=== PATIENT | male | born 1985 | race Caucasian/White ===

== ENCOUNTER 2019-05-12 11:22 | Inpatient (IN) | payer BC, OTHER ==
[~2019-05-12] VITALS: Ht 175.3 cm; Wt 93.8 kg
[2019-05-12] MEDS ORDERED: SODIUM CHLORIDE 0.9% 500 ML IVB ONE (12:03)
[2019-05-12] MEDS ORDERED: SODIUM CHLORIDE 0.9% 1,000 ML IV ONE (12:03)
[2019-05-12] MEDS ORDERED: HYDROmorphone HCL 2 MG/ML VL IV ONE ×2 (12:15→15:30)
[2019-05-12] MEDS: PROMETHAZINE HCL 25 MG/ML 1ML IV PRN ×2 (12:45→22:58)
[2019-05-12 13:47] LABS: Basophils # (auto) 0 10 ^3/uL (0-0.2); Basophils % (auto) 0.3 % (0.0-2.0); Eosinophils # (auto) 0 10 ^3/uL (0-0.8); Hematocrit 43.1 % (41.0-53.0); Hemoglobin 14.7 g/dL (13.5-17.5); Lymphocytes # (auto) 0.5 10 ^3/uL (0.4-5.4); Lymphocytes % (auto) 3.5 % (10.0-50.0); Mean Corpuscular Hemoglobin 30.2 pg (28.0-32.0); Mean Corpuscular Hgb Conc. 34.1 g/dL (32.0-36.0); Mean Corpuscular Volume 88.6 fL (80.0-100.0); Monocytes % (auto) 6.7 % (0.0-12.0); Neutrophils # (auto) 13.9 10 ^3/uL (1.6-8.6); Neutrophils % (auto) 89.5 % (37.0-80.0); Nucleated Red Blood Cells % 0.1 %; Platelet Count (auto) 174 10^3/uL (140-450); Red Blood Cells 4.87 10^6/uL (4.5-5.90); Red Cell Distribution Width 15.3 % (11.8-14.3); White Blood Cell 15.5 10^3/uL (4.4-10.8)
[2019-05-12 14:13] LABS: Albumin 3.8 g/dL (3.4-5.0); Calcium 8.3 mg/dL (8.5-10.1); Magnesium 1.9 mg/dL (1.6-2.6); Potassium 3.6 mmol/L (3.5-5.1)
[2019-05-12 14:22] LABS: BUN/Creatinine Ratio 15.2; Bilirubin, Total 0.9 mg/dL (0.2-1.0); Total Protein 7.4 g/dL (6.4-8.2)
[2019-05-12] MEDS ORDERED: IOHEXOL 350 MG/ML 100ML IJ ONE (14:29)
[2019-05-12 14:38] LABS: Urine Bacteria NONE SEEN /hpf (None Seen); Urine Blood 2+ /uL (Negative); Urine Specific Gravity 1.019 (1.001-1.035); Urine WBC <1 /hpf (0 - 3)
[2019-05-12] MEDS ORDERED: LABETALOL HCL 5 MG/ML 4ML SYRINGE IV ONE (14:45)
[2019-05-12] MEDS ORDERED: SODIUM CHLORIDE 0.9% 2,000 ML IV ONE (14:45)
[2019-05-12] MEDS ORDERED: PROMETHAZINE HCL 25 MG/ML 1ML IV ONE (15:30)
[2019-05-12] MEDS ORDERED: hydrALAZINE HCL 20 MG/ML VL IV PRN (16:15)
[2019-05-12] MEDS ORDERED: LORazepam 2MG/ML-1ML VIAL IV PRN (16:15)
[2019-05-12] MEDS ORDERED: cloNIDine 0.2 mg/24hr 7DAY PATCH TD ONE (16:15)
[2019-05-12] MEDS ORDERED: hydrALAZINE HCL 20 MG/ML VL IV ONE (16:15)
[2019-05-12] MEDS ORDERED: ONDANSETRON HCL 4 MG/2 ML VIAL IV PRN (16:15)
[2019-05-12] MEDS ORDERED: HYDROmorphone HCL 2 MG/ML VL IV PRN (16:15)
[2019-05-12] MEDS ORDERED: NITROGLYCERIN 0.4 MG SL TAB SL PRN (16:15)
[2019-05-12 16:19] LABS: Amphetamine Screen, Urine NEGATIVE (NEGATIVE); Barbiturate Scree,Urine NEGATIVE (NEGATIVE); Benzodiazephine Screen, Urine NEGATIVE (NEGATIVE); Cannabinoid Screen, Urine POSITIVE (NEGATIVE); Cocaine Screen, Urine POSITIVE (NEGATIVE); Opiate Scree,Urine NEGATIVE (NEGATIVE); Phencyclidine Screen, Urine NEGATIVE (NEGATIVE)
[2019-05-12 17:08] LABS: Cholesterol 145 mg/dL (< 200); HDL Cholesterol 38 mg/dL (40-59); Triglycerides 568 mg/dL (< 150)
--- NOTE | 2019-05-12 17:26 | NUR ---
Telemetry admit from ER KELSIE MAZA admitted to Telemetry unit after SBAR received. Patient oriented to FALGUNI PIRES primary RN, unit, room 214b and unit policies regarding patient care and visiting hours. Patient now on continuous telemetry monitoring, tele box #[id number] and telemetry reading on arrival to unit is 104. Patient weighed by bedscale and encouraged to call if they need something. All questions and concerns addressed, patient verbalized understanding.
[2019-05-12 17:41] VITALS: BP 164/105
[2019-05-12] MEDS: LACTATED RINGER'S 1,000 ML IV SCH (17:46)
--- NOTE | 2019-05-12 17:46 | NUR ---
PAIN Patient complaining of pain 10/10 epigastric. No pain medication due, patient was offered hot pack and refused, will reach out to hospitalist.
--- NOTE | 2019-05-12 17:50 | NUR ---
DICK PAPPAS PAGED updated on patient pain status, new orders received.
[2019-05-12 17:53] VITALS: BP 164/105
--- NOTE | 2019-05-12 18:42 | NUR ---
IV insertion IV access obtained, via clean sterile technique by inserting 20 gauge catheter at right AC after 3 attempts. IV secured properly. No trauma to site. Patient tolerated well.
[2019-05-12] MEDS: HYDROmorphone HCL 2 MG/ML VL IV PRN ×2 (18:52→22:58)
--- NOTE | 2019-05-12 18:53 | NUR ---
IV removal IV LAC DC'd with clean sterile technique, catheter fully intact. Pressure dressing applied to site. Patient tolerated well.
[2019-05-12] MEDS ORDERED: LOSARTAN POTASSIUM 50 MG TAB PO ONE (20:45)
[2019-05-12] MEDS ORDERED: METOPROLOL SUCCINATE XL 50 MG TAB PO ONE (20:45)
[2019-05-12] MEDS: FAMOTIDINE (10MG/ML) 2ML VL IV SCH (20:53)
[2019-05-12] MEDS: dilTIAZem 120MG ER CAP PO SCH (21:12)
[2019-05-12 21:40] VITALS: BP 163/111
[2019-05-13] MEDS: LACTATED RINGER'S 1,000 ML IV SCH ×3 (00:15→16:15)
[2019-05-13] MEDS: MORPHINE SULF INJ 2 MG/ML SYRINGE 1ML IV PRN (04:26)
[2019-05-13] MEDS: PROMETHAZINE HCL 25 MG/ML 1ML IV PRN ×4 (04:26→17:56)
[2019-05-13 05:00] VITALS: BP 145/107
--- NOTE | 2019-05-13 07:45 | NUR ---
Opening Shift Note Assumed care of patient, awake and alert. No S/S of distress/SOB, patient reports acute 6/10 abdominal pain, will medicate per MD orders. Updated on POC and instructed to call for assistance as needed, patient verbalized understanding. Bed locked in lowest position, side rails up x2, call light within reach. Will continue to monitor for changes Q1hr and PRN.
[2019-05-13] MEDS: HYDROmorphone HCL 2 MG/ML VL IV PRN ×3 (08:21→17:56)
[2019-05-13 08:54] VITALS: BP 147/108
[2019-05-13 09:40] LABS: Basophils # (auto) 0.1 10 ^3/uL (0-0.2); Basophils % (auto) 0.4 % (0.0-2.0); Eosinophils # (auto) 0 10 ^3/uL (0-0.8); Hemoglobin 15.1 g/dL (13.5-17.5); Lymphocytes # (auto) 0.7 10 ^3/uL (0.4-5.4); Lymphocytes % (auto) 4.5 % (10.0-50.0); Mean Corpuscular Hemoglobin 30.1 pg (28.0-32.0); Mean Corpuscular Hgb Conc. 33.6 g/dL (32.0-36.0); Mean Corpuscular Volume 89.4 fL (80.0-100.0); Monocytes # (auto) 0.8 10 ^3/uL (0-1.3); Monocytes % (auto) 5.2 % (0.0-12.0); Neutrophils # (auto) 13.2 10 ^3/uL (1.6-8.6); Neutrophils % (auto) 89.9 % (37.0-80.0); Platelet Count (auto) 175 10^3/uL (140-450); Red Blood Cells 5.03 10^6/uL (4.5-5.90); Red Cell Distribution Width 15.8 % (11.8-14.3); White Blood Cell 14.7 10^3/uL (4.4-10.8)
[2019-05-13 09:54] LABS: Calcium 7.9 mg/dL (8.5-10.1); Potassium 3.6 mmol/L (3.5-5.1)
[2019-05-13 10:03] LABS: Bilirubin, Total 1.1 mg/dL (0.2-1.0); Total Protein 6.6 g/dL (6.4-8.2)
[2019-05-13] MEDS: dilTIAZem 120MG ER CAP PO SCH ×2 (10:20→22:00)
[2019-05-13] MEDS: LOSARTAN POTASSIUM 50 MG TAB PO SCH (10:21)
[2019-05-13] MEDS: FAMOTIDINE (10MG/ML) 2ML VL IV SCH ×2 (10:21→22:00)
[2019-05-13] MEDS: METOPROLOL SUCCINATE XL 50 MG TAB PO SCH (10:21)
[2019-05-13] MEDS ORDERED: IOHEXOL 350 MG/ML 100ML IJ ONE (11:51)
[2019-05-13] MEDS ORDERED: FOLIC ACID 1 MG, MULTIPLE VITAMIN 10 ML, MAGNESIUM SULF SDV 50% 8 MEQ, THIAMINE INJ 100... INJ SCH ×5 (12:00)
[2019-05-13 12:44] VITALS: BP 144/106
[2019-05-13 16:52] VITALS: BP 150/109
--- NOTE | 2019-05-13 17:15 | NUR ---
IV removal IV DC'd with clean sterile technique, catheter fully intact. Pressure dressing applied to site. Patient tolerated well. NOTE: [RIGHT AC LEAKING]
--- NOTE | 2019-05-13 17:30 | NUR ---
IV insertion IV access obtained, via clean sterile technique by inserting 22 gauge catheter at right forearm after 2 attempt(s). IV secured properly. No trauma to site. Patient tolerated well.
[2019-05-13 22:00] VITALS: BP 141/94
[2019-05-14] MEDS: LACTATED RINGER'S 1,000 ML IV SCH ×4 (00:44→22:33)
[2019-05-14] MEDS: PROMETHAZINE HCL 25 MG/ML 1ML IV PRN ×4 (00:45→22:36)
[2019-05-14] MEDS: MORPHINE SULF INJ 2 MG/ML SYRINGE 1ML IV PRN (00:48)
[2019-05-14 04:52] VITALS: BP 134/83
[2019-05-14 06:59] LABS: Basophils # (auto) 0 10 ^3/uL (0-0.2); Basophils % (auto) 0.2 % (0.0-2.0); Eosinophils # (auto) 0.1 10 ^3/uL (0-0.8); Eosinophils % (auto) 0.5 % (0.0-7.0); Hemoglobin 13.7 g/dL (13.5-17.5); Lymphocytes # (auto) 1.2 10 ^3/uL (0.4-5.4); Lymphocytes % (auto) 8.9 % (10.0-50.0); Mean Corpuscular Hemoglobin 30.8 pg (28.0-32.0); Mean Corpuscular Hgb Conc. 34.1 g/dL (32.0-36.0); Mean Corpuscular Volume 90.3 fL (80.0-100.0); Monocytes # (auto) 0.9 10 ^3/uL (0-1.3); Monocytes % (auto) 6.3 % (0.0-12.0); Neutrophils # (auto) 11.6 10 ^3/uL (1.6-8.6); Neutrophils % (auto) 84.1 % (37.0-80.0); Platelet Count (auto) 145 10^3/uL (140-450); Red Blood Cells 4.43 10^6/uL (4.5-5.90); Red Cell Distribution Width 15.6 % (11.8-14.3); White Blood Cell 13.8 10^3/uL (4.4-10.8)
[2019-05-14 07:12] LABS: Calcium 8.2 mg/dL (8.5-10.1); Potassium 3.6 mmol/L (3.5-5.1)
--- NOTE | 2019-05-14 07:30 | NUR ---
Opening Shift Note Assumed care of patient, awake and alert. No S/S of distress/SOB or pain. Bed in lowest and locked position with side rails up x2 and call light with in reach. Instructed on POC and to call for assist PRN, will continue to monitor for changes Q1hr and PRN.
[2019-05-14 08:10] VITALS: BP 116/72
[2019-05-14 08:50] VITALS: BP 116/72
[2019-05-14] MEDS: LOSARTAN POTASSIUM 50 MG TAB PO SCH (10:00)
[2019-05-14] MEDS: HYDROmorphone HCL 2 MG/ML VL IV PRN ×3 (10:15→22:36)
[2019-05-14] MEDS: FAMOTIDINE (10MG/ML) 2ML VL IV SCH ×2 (10:16→22:34)
[2019-05-14] MEDS: dilTIAZem 120MG ER CAP PO SCH ×2 (10:16→22:34)
[2019-05-14] MEDS: METOPROLOL SUCCINATE XL 50 MG TAB PO SCH (10:17)
--- NOTE | 2019-05-14 10:42 | NUR ---
SPOKE TO DR. GARCIA. NEW ORDERS RECEIVED, READ BACK AND VERIFIED.
--- NOTE | 2019-05-14 13:17 | NUR ---
NUTRITION ASSESSMENT NOTES Please refer to link notes of nutrition screen form filed under the intervention section of the plan of care for further details. Est. Energy Needs: 2325-5378 kcal (17-20 kcal/kg BW). Est. Protein Needs: 78-94 gms/day (1.0-1.2 gms/kg Adj.BW). Will continue to monitor pertinent labs and reassess nutrient need prn Addendum: 05/14/19 at [address] Amended: Links added.
--- NOTE | 2019-05-14 15:00 | NUR ---
IV removal AND IV insertion RIGHT FA IV DC'd with clean sterile technique, catheter fully intact. Pressure dressing applied to site. Patient tolerated well. IV access obtained, via clean sterile technique by inserting 20 gauge catheter at LEFT FA after 1 attempt(s). IV secured properly. No trauma to site. Patient tolerated well.
[2019-05-14 16:42] VITALS: BP 120/70
[2019-05-14 22:00] VITALS: BP 118/81
[2019-05-15 05:00] VITALS: BP 137/79
[2019-05-15 06:14] LABS: Basophils # (auto) 0.1 10 ^3/uL (0-0.2); Basophils % (auto) 0.6 % (0.0-2.0); Eosinophils # (auto) 0.1 10 ^3/uL (0-0.8); Eosinophils % (auto) 1.2 % (0.0-7.0); Hematocrit 35.4 % (41.0-53.0); Lymphocytes # (auto) 0.9 10 ^3/uL (0.4-5.4); Lymphocytes % (auto) 7.7 % (10.0-50.0); Mean Corpuscular Hemoglobin 30.4 pg (28.0-32.0); Mean Corpuscular Volume 89.6 fL (80.0-100.0); Monocytes # (auto) 0.7 10 ^3/uL (0-1.3); Monocytes % (auto) 6.1 % (0.0-12.0); Neutrophils # (auto) 9.9 10 ^3/uL (1.6-8.6); Neutrophils % (auto) 84.4 % (37.0-80.0); Platelet Count (auto) 143 10^3/uL (140-450); Red Blood Cells 3.95 10^6/uL (4.5-5.90); Red Cell Distribution Width 15.8 % (11.8-14.3); White Blood Cell 11.7 10^3/uL (4.4-10.8)
[2019-05-15] MEDS: LACTATED RINGER'S 1,000 ML IV SCH ×3 (08:15→22:00)
[2019-05-15 08:20] VITALS: BP 125/73
[2019-05-15 09:31] VITALS: BP 110/66
[2019-05-15] MEDS: LOSARTAN POTASSIUM 50 MG TAB PO SCH (10:00)
[2019-05-15] MEDS: dilTIAZem 120MG ER CAP PO SCH ×2 (10:32→22:00)
[2019-05-15] MEDS: METOPROLOL SUCCINATE XL 50 MG TAB PO SCH (10:32)
[2019-05-15] MEDS: MULTIPLE VITAMIN TAB PO SCH (10:32)
[2019-05-15] MEDS: FAMOTIDINE (10MG/ML) 2ML VL IV SCH ×2 (10:32→21:59)
[2019-05-15 12:58] VITALS: BP 125/73
--- NOTE | 2019-05-15 17:00 | NUR ---
IV insertion AND IV removal IV access obtained, via clean sterile technique by inserting 20 gauge catheter at RIGHT FA after 1 attempt(s). IV secured properly. No trauma to site. Patient tolerated well. LEFT FA IV DC'd with clean sterile technique, catheter fully intact. Pressure dressing applied to site. Patient tolerated well.
[2019-05-15] MEDS: PROMETHAZINE HCL 25 MG/ML 1ML IV PRN ×2 (17:08→23:50)
[2019-05-15] MEDS: HYDROmorphone HCL 2 MG/ML VL IV PRN ×3 (17:08→23:49)
[2019-05-15 17:21] VITALS: BP 142/86
--- NOTE | 2019-05-15 19:30 | NUR ---
Opening Shift Note Assumed care of patient, awake and alert. No S/S of distress/SOB. Patient complains of 7/10 pain in the lower back. POC discussed and questions answered. Bed is locked in lowest position with side rails up x2 for safety. Call light is within reach and patient is encouraged to call for assistance as needed. Will continue to monitor for changes Q1hr and PRN.
[2019-05-15 22:00] VITALS: BP 134/89
[2019-05-16] MEDS: LACTATED RINGER'S 1,000 ML IV SCH ×2 (02:36→12:43)
[2019-05-16] MEDS: HYDROmorphone HCL 2 MG/ML VL IV PRN ×2 (02:51→20:34)
[2019-05-16 05:00] VITALS: BP_SYST 123; BP_SYST 130; BP_DIAS 69; BP_DIAS 88
[2019-05-16 06:31] LABS: Basophils # (auto) 0.1 10 ^3/uL (0-0.2); Basophils % (auto) 0.5 % (0.0-2.0); Eosinophils # (auto) 0.2 10 ^3/uL (0-0.8); Eosinophils % (auto) 1.7 % (0.0-7.0); Hematocrit 37.4 % (41.0-53.0); Hemoglobin 12.7 g/dL (13.5-17.5); Lymphocytes # (auto) 1.1 10 ^3/uL (0.4-5.4); Lymphocytes % (auto) 9.8 % (10.0-50.0); Mean Corpuscular Hemoglobin 30.4 pg (28.0-32.0); Mean Corpuscular Hgb Conc. 33.8 g/dL (32.0-36.0); Mean Corpuscular Volume 89.9 fL (80.0-100.0); Monocytes # (auto) 0.9 10 ^3/uL (0-1.3); Monocytes % (auto) 8.1 % (0.0-12.0); Neutrophils # (auto) 9.2 10 ^3/uL (1.6-8.6); Neutrophils % (auto) 79.9 % (37.0-80.0); Platelet Count (auto) 167 10^3/uL (140-450); Red Blood Cells 4.16 10^6/uL (4.5-5.90); Red Cell Distribution Width 15.6 % (11.8-14.3); White Blood Cell 11.5 10^3/uL (4.4-10.8)
[2019-05-16 06:50] LABS: Magnesium 2.4 mg/dL (1.6-2.6); Potassium 3.3 mmol/L (3.5-5.1)
[2019-05-16] MEDS: HYDROcodone-ACET 5/325MG TAB PO PRN ×2 (07:09→12:49)
[2019-05-16 09:00] VITALS: BP 139/96
[2019-05-16] MEDS: FAMOTIDINE (10MG/ML) 2ML VL IV SCH ×2 (09:40→21:26)
[2019-05-16] MEDS: LOSARTAN POTASSIUM 50 MG TAB PO SCH (09:41)
[2019-05-16] MEDS: MULTIPLE VITAMIN TAB PO SCH (09:42)
[2019-05-16] MEDS: dilTIAZem 120MG ER CAP PO SCH ×2 (09:42→21:27)
[2019-05-16] MEDS: METOPROLOL SUCCINATE XL 50 MG TAB PO SCH (09:43)
[2019-05-16] MEDS ORDERED: POTASSIUM CHL 20 Meq TABLET PO ONE (11:00)
[2019-05-16 13:00] VITALS: BP 143/95
[2019-05-16 17:00] VITALS: BP 153/97
--- NOTE | 2019-05-16 19:12 | NUR ---
ENDORSED CARE TO NOC ANGELINA MARTÍNEZ.
--- NOTE | 2019-05-16 19:30 | NUR ---
Opening Shift Note Assumed care of patient, awake and alert. No S/S of distress/SOB. Complained of moderate abdominal pain. Instructed on POC and to call for assist PRN, patient verbalized understanding. Safety measures ensured, call light within reach, will continue to monitor for changes Q1hr and PRN.
--- NOTE | 2019-05-16 20:30 | NUR ---
IV on RFA infiltrated, removed with catheter intact, patient tolerated well IV insertion IV access obtained, via clean sterile technique by inserting 22 gauge catheter at LFA after [1] attempt(s). IV secured properly. No trauma to site. Patient tolerated well. NOTE: []
[2019-05-16 22:00] VITALS: BP 150/96
--- NOTE | 2019-05-16 22:05 | NUR ---
Patient complained of abdominal pain. Per patient, it started after he took shower. Will continue to monitor
[2019-05-17] MEDS: HYDROmorphone HCL 2 MG/ML VL IV PRN ×6 (00:19→20:45)
[2019-05-17 05:00] VITALS: BP 150/90
[2019-05-17] MEDS: LACTATED RINGER'S 1,000 ML IV SCH ×3 (06:48→21:57)
--- NOTE | 2019-05-17 07:30 | NUR ---
Opening Shift Note Assumed care of patient, awake and alert. No S/S of distress/SOB or pain reported at this time, no current c/o N/V/D at this time. Instructed on POC and to call for assist PRN, call light within reach, will continue to monitor for changes Q1hr and PRN.
[2019-05-17 08:00] VITALS: BP 182/111
[2019-05-17 08:10] LABS: Basophils # (auto) 0.1 10 ^3/uL (0-0.2); Basophils % (auto) 0.7 % (0.0-2.0); Eosinophils # (auto) 0.1 10 ^3/uL (0-0.8); Eosinophils % (auto) 0.9 % (0.0-7.0); Hematocrit 34.4 % (41.0-53.0); Hemoglobin 11.9 g/dL (13.5-17.5); Lymphocytes # (auto) 0.9 10 ^3/uL (0.4-5.4); Lymphocytes % (auto) 7.2 % (10.0-50.0); Mean Corpuscular Hemoglobin 30.7 pg (28.0-32.0); Mean Corpuscular Hgb Conc. 34.6 g/dL (32.0-36.0); Mean Corpuscular Volume 88.7 fL (80.0-100.0); Monocytes # (auto) 1.1 10 ^3/uL (0-1.3); Monocytes % (auto) 9.3 % (0.0-12.0); Neutrophils # (auto) 9.6 10 ^3/uL (1.6-8.6); Neutrophils % (auto) 81.9 % (37.0-80.0); Platelet Count (auto) 200 10^3/uL (140-450); Red Blood Cells 3.87 10^6/uL (4.5-5.90); Red Cell Distribution Width 15.6 % (11.8-14.3); White Blood Cell 11.8 10^3/uL (4.4-10.8)
[2019-05-17] MEDS: FAMOTIDINE (10MG/ML) 2ML VL IV SCH ×2 (08:34→21:56)
[2019-05-17] MEDS: dilTIAZem 120MG ER CAP PO SCH (08:35)
[2019-05-17] MEDS: LOSARTAN POTASSIUM 50 MG TAB PO SCH (08:35)
[2019-05-17] MEDS: METOPROLOL SUCCINATE XL 50 MG TAB PO SCH (08:35)
[2019-05-17] MEDS: MULTIPLE VITAMIN TAB PO SCH (08:35)
[2019-05-17 08:47] VITALS: BP 182/111
--- NOTE | 2019-05-17 11:40 | NUR ---
MD DR GARCIA AT BEDSIDE, DISCUSSING POC, NEW ORDERS ENTERED FOR BLOOD PRESSURE CONTROL, CONT CARE
[2019-05-17] MEDS ORDERED: LABETALOL HCL 200 MG TAB PO ONE (11:45)
[2019-05-17 12:42] VITALS: BP 173/105
--- NOTE | 2019-05-17 14:51 | NUR ---
Social Service Consult regarding Pt with substance abuse issues. Pt states he lives with friends and will return there on discharge. Pt is in agreement with receiving help for his alcohol abuse. Gave pt [facility]. Phone number [phone], AA [phone], and Alcohol and drug Abuse Prevention . Pt was also given a packet of additional resources. Pt does not have a primary Physician.
[2019-05-17] MEDS: PROMETHAZINE HCL 25 MG/ML 1ML IV PRN (17:06)
[2019-05-17 17:26] VITALS: BP 140/81
--- NOTE | 2019-05-17 19:25 | NUR ---
Opening Shift Note Received report from Shaista ALFARO. Assumed care of patient, awake and alert. No S/S of distress/SOB. Complains of abdominal pain, medication will be given once due. Instructed on POC and to call for assist PRN, will continue to monitor for changes Q1hr and PRN.
[2019-05-17 21:45] VITALS: BP 150/94
[2019-05-17] MEDS: LABETALOL HCL 200 MG TAB PO SCH (21:57)
[2019-05-18] MEDS: HYDROmorphone HCL 2 MG/ML VL IV PRN ×5 (00:03→23:36)
[2019-05-18 05:00] VITALS: BP 126/87
[2019-05-18 05:25] LABS: Basophils # (auto) 0.1 10 ^3/uL (0-0.2); Basophils % (auto) 0.6 % (0.0-2.0); Eosinophils # (auto) 0.2 10 ^3/uL (0-0.8); Eosinophils % (auto) 1.3 % (0.0-7.0); Hematocrit 33.1 % (41.0-53.0); Hemoglobin 11.1 g/dL (13.5-17.5); Lymphocytes # (auto) 1.4 10 ^3/uL (0.4-5.4); Lymphocytes % (auto) 11.2 % (10.0-50.0); Mean Corpuscular Hemoglobin 29.8 pg (28.0-32.0); Mean Corpuscular Hgb Conc. 33.4 g/dL (32.0-36.0); Mean Corpuscular Volume 89.1 fL (80.0-100.0); Monocytes # (auto) 1.3 10 ^3/uL (0-1.3); Monocytes % (auto) 10.3 % (0.0-12.0); Neutrophils # (auto) 9.6 10 ^3/uL (1.6-8.6); Neutrophils % (auto) 76.6 % (37.0-80.0); Nucleated Red Blood Cells % 0.1 %; Platelet Count (auto) 238 10^3/uL (140-450); Red Blood Cells 3.71 10^6/uL (4.5-5.90); Red Cell Distribution Width 15.6 % (11.8-14.3); White Blood Cell 12.5 10^3/uL (4.4-10.8)
[2019-05-18 05:41] LABS: Potassium 3.3 mmol/L (3.5-5.1)
[2019-05-18] MEDS: FAMOTIDINE (10MG/ML) 2ML VL IV SCH ×2 (08:38→22:00)
[2019-05-18] MEDS: LOSARTAN POTASSIUM 50 MG TAB PO SCH (08:39)
[2019-05-18] MEDS: LABETALOL HCL 200 MG TAB PO SCH ×2 (08:40→22:01)
[2019-05-18 09:16] VITALS: BP 158/96
[2019-05-18] MEDS ORDERED: POTASSIUM CHL 20 Meq TABLET PO ONE (10:45)
--- NOTE | 2019-05-18 10:52 | NUR ---
DR GARCIA AT BEDSIDE, REVIEWED POC WITH PATIENT. ADVANCED DIET TO CLEAR LIQUID TO SEE HOW HE TOLERATES.
[2019-05-18] MEDS: LACTATED RINGER'S 1,000 ML IV SCH ×2 (12:44→23:35)
[2019-05-18] MEDS: MULTIPLE VITAMIN TAB PO SCH (12:45)
[2019-05-18 13:22] VITALS: BP 140/100
--- NOTE | 2019-05-18 16:01 | NUR ---
Received Referral to consult with pt due to substance abuse. Pt lives with his girfriend. Pt is totally independent. Pt has no disabilities and he does not use any medical equipment. His primary
[2019-05-18 17:15] VITALS: BP 140/91
--- NOTE | 2019-05-18 19:15 | NUR ---
Opening Shift Note Received report from Thierry ALFARO. Assumed care of patient, awake and alert. No S/S of distress/SOB or pain. Instructed on POC and to call for assist PRN, will continue to monitor for changes Q1hr and PRN.
[2019-05-18 22:00] VITALS: BP 172/100
[2019-05-18] MEDS: cloNIDine HCL 0.1 MG TAB PO PRN (23:36)
--- NOTE | 2019-05-19 03:00 | NUR ---
IV removal IV line accidently removed. IV DC'd with clean sterile technique, catheter fully intact. Pressure dressing applied to site. Patient tolerated well.
--- NOTE | 2019-05-19 03:10 | NUR ---
IV insertion IV access obtained, via clean sterile technique by inserting 22 gauge catheter at R hand after 1 attempt(s). IV secured properly. No trauma to site. Patient tolerated well.
[2019-05-19] MEDS: HYDROmorphone HCL 2 MG/ML VL IV PRN ×2 (03:40→21:50)
[2019-05-19 05:00] VITALS: BP 164/104
[2019-05-19 05:38] LABS: Basophils # (auto) 0.1 10 ^3/uL (0-0.2); Basophils % (auto) 0.5 % (0.0-2.0); Eosinophils # (auto) 0.2 10 ^3/uL (0-0.8); Eosinophils % (auto) 2.1 % (0.0-7.0); Hematocrit 30.8 % (41.0-53.0); Hemoglobin 10.4 g/dL (13.5-17.5); Lymphocytes # (auto) 1.5 10 ^3/uL (0.4-5.4); Lymphocytes % (auto) 12.7 % (10.0-50.0); Mean Corpuscular Hemoglobin 30.2 pg (28.0-32.0); Mean Corpuscular Hgb Conc. 33.7 g/dL (32.0-36.0); Mean Corpuscular Volume 89.4 fL (80.0-100.0); Monocytes # (auto) 1.4 10 ^3/uL (0-1.3); Monocytes % (auto) 12.4 % (0.0-12.0); Neutrophils # (auto) 8.4 10 ^3/uL (1.6-8.6); Neutrophils % (auto) 72.3 % (37.0-80.0); Platelet Count (auto) 282 10^3/uL (140-450); Red Blood Cells 3.45 10^6/uL (4.5-5.90); Red Cell Distribution Width 15.5 % (11.8-14.3); White Blood Cell 11.6 10^3/uL (4.4-10.8)
[2019-05-19 05:58] LABS: Potassium 3.4 mmol/L (3.5-5.1)
[2019-05-19 06:07] LABS: BUN/Creatinine Ratio 7.4
[2019-05-19] MEDS: cloNIDine HCL 0.1 MG TAB PO PRN ×2 (06:16→23:46)
--- NOTE | 2019-05-19 07:25 | NUR ---
Opening Shift Note Assumed care of patient, currently in bed alert and oriented x4, . No S/S of distress/SOB or pain reported at this time. Call light within reach, Instructed on POC and to call for assist PRN, will continue to monitor for changes Q1hr and PRN.
[2019-05-19 09:00] VITALS: BP 148/93
[2019-05-19] MEDS: FAMOTIDINE (10MG/ML) 2ML VL IV SCH ×2 (10:00→21:49)
[2019-05-19] MEDS: LACTATED RINGER'S 1,000 ML IV SCH ×3 (10:29→21:51)
[2019-05-19] MEDS: MULTIPLE VITAMIN TAB PO SCH (10:32)
[2019-05-19] MEDS: LABETALOL HCL 200 MG TAB PO SCH ×2 (10:33→21:51)
[2019-05-19] MEDS: LOSARTAN POTASSIUM 50 MG TAB PO SCH (10:34)
--- NOTE | 2019-05-19 10:39 | NUR ---
IV LINE IV line not patent, unable to flush, IV DC'd using clean sterile technique, catheter removed intact. Patient refusing new IV insertion at this time. Patient states, " let's just wait until I see the doctor there's no point in me getting pocked again if I'm going home.
--- NOTE | 2019-05-19 11:23 | NUR ---
Nutrition Follow-up Notes Wt.: 94.6 kg Pt was on Clear Liquid Diet and advanced to soft diet. Currently on Clear Liquid Diet. Appetite is fair aeb avg 73% PO intake over 10 meals. Will continue to monitor pertinent labs and reassess nutrient needs prn. Est. Energy Needs: 5144-1024 kcal (17-20 kcal/kg BW). Est. Protein Needs: 78-94 gms/day (1.0-1.2 gms/kg Adj.BW). Labs 05/18: K 3.4 L, lipase 585 H Skin: Naveed scale 19, low risk, skin intact per intermediate manager. GI: Pt had BM 05/18/19 per intermediate manager. PES: 1) Altered nutrition related lab values r/t current medical condition aeb hyponatremia, hypocalcemia, hypertriglyceridemia, hypoalbuminemia 2) Obese, Class I r/t energy intake exceeding energy needs prior to admission aeb BMI 30.7 kg/m2 and 130%IBW Will continue to monitor PO intake, pertinent labs, skin status and weight trends. F/u in 2 to 3 days. Additional Recommendation: 1) Suggest advancing diet gradually to oral 2gNa diet, as tolerated. 2) If Albumin continues trending down, consider Prostat 1 pkt BID. 3) Continue close supervision and feeding assistance prn during meals. 4) Continue current plan of care.
[2019-05-19] MEDS ORDERED: HYDROmorphone HCL 2 MG/ML VL IV PRN (11:45)
[2019-05-19] MEDS ORDERED: POTASSIUM CHL 20 Meq TABLET PO ONE (11:45)
[2019-05-19 13:00] VITALS: BP 148/114
--- NOTE | 2019-05-19 16:10 | NUR ---
COMMUNICATION Per Dr. Lauryn longoria to upgrade patient to mechanical soft diet. Will monitor for diet tolerance.
[2019-05-19 16:43] VITALS: BP 155/112
--- NOTE | 2019-05-19 17:50 | NUR ---
IV refused Second attempt to insert IV line. Patient refusing. Patient states " I don't have IV meds, and I'm going home tomorrow". Patient educated on risks of not having an IV line, patient verbalizes understanding.
--- NOTE | 2019-05-19 19:27 | NUR ---
Opening Shift Note Received report and assumed care of patient. Patient is awake and alert. No signs or symptoms of distress noted, patient currently denies pain. Instructed patient on plan of care and to call for assistance as needed. Will continue to monitor.
--- NOTE | 2019-05-19 20:08 | NUR ---
IV insertion IV access obtained, via clean sterile technique by inserting 22 gauge catheter at Left hand. IV secured properly. No trauma to site. Patient tolerated well.
[2019-05-19 22:00] VITALS: BP 179/125
[2019-05-19] MEDS: HYDROcodone-ACET 5/325MG TAB PO PRN (23:53)
[2019-05-20] MEDS ORDERED: hydrALAZINE HCL 20 MG/ML VL IV ONE (01:30)
--- NOTE | 2019-05-20 01:40 | NUR ---
Elevated Blood Pressure Patient blood pressure 172/116 after administration of scheduled and prn blood pressure medications. Paged Hospitalist, new order for hydralazine 10mg IV ONCE. Order read back and verified, will carry out and continue to monitor.
[2019-05-20] MEDS: HYDROmorphone HCL 2 MG/ML VL IV PRN (03:02)
--- NOTE | 2019-05-20 04:51 | NUR ---
IV removal/insertion Patient accidentally removed IV. Pressure dressing applied to site. NOTE: Inserted 22g IV to the Right hand. Patient tolerated procedure well.
[2019-05-20 05:00] VITALS: BP 138/95
[2019-05-20 09:00] VITALS: BP 145/89
[2019-05-20] MEDS: LACTATED RINGER'S 1,000 ML IV SCH (09:45)
[2019-05-20] MEDS: MULTIPLE VITAMIN TAB PO SCH (10:11)
[2019-05-20] MEDS: LABETALOL HCL 200 MG TAB PO SCH (10:11)
[2019-05-20] MEDS: LOSARTAN POTASSIUM 50 MG TAB PO SCH (10:11)
[2019-05-20] MEDS: FAMOTIDINE (10MG/ML) 2ML VL IV SCH (10:12)
[2019-05-20 12:37] VITALS: BP 145/89
[2019-05-20 13:00] VITALS: BP 113/76
--- NOTE | 2019-05-20 14:16 | NUR ---
Discharge instructions given as ordered. Encourage to follow up with PMD as instructed. All questions and concerns addressed. Patient verbalized understanding. IV removed with catheter intact, pressure dressing applied. Patient taken to vehicle via wheelchair with all personal belongings, accompanied by staff. No distress noted at time of departure.
== END 2019-05-20 14:20 | disposition home or self-care (01) | DRG 439 ==
LOC: EDBD 11:22 → ER 11:22 → TELE 11:23 → TELE-CENTR 18:24 → CENTRAL 05-18 19:34
PROVIDERS: ADMIT Nurse Practitioner Acute Care; ATTEND Internal Medicine
DX: K85.90 Acute pancreatitis without necrosis or infection, unspecified (principal); F10.988 Alcohol use, unspecified with other alcohol-induced disorder; R65.10 Systemic inflammatory response syndrome (SIRS) of non-infectious origin without acute organ dysfunction; E66.9 Obesity, unspecified; E78.1 Pure hyperglyceridemia; E87.6 Hypokalemia; F12.90 Cannabis use, unspecified, uncomplicated; F14.10 Cocaine abuse, uncomplicated; I10 Essential (primary) hypertension; I16.0 Hypertensive urgency; I71.2 Thoracic aortic aneurysm, without rupture; K40.90 Unilateral inguinal hernia, without obstruction or gangrene, not specified as recurrent; Z68.30 Body mass index [BMI] 30.0-30.9, adult
CPT/HCPCS: 36415; 71046; 71275; 74177; 76705; 80048; 80053; 80061; 80307; 81001; 82150; 83690; 83735; 84132; 84443; 85025; G0378; J3490

== ENCOUNTER 2020-08-14 22:01 | Emergency (ER) | payer BC ==
[~2020-08-14] VITALS: Ht 175.3 cm; Wt 88.5 kg
[2020-08-14] MEDS ORDERED: cloNIDine HCL 0.1 MG TAB PO ONE (22:15)
[2020-08-15] MEDS ORDERED: ACETAMINOPHEN 500 MG TAB PO ONE ×2 (02:15→02:23)
[2020-08-15 02:30] VITALS: BP 160/100
[2020-08-15] MEDS ORDERED: TETANUS-DIPTH-ACEL PERTUSSIS 0.5ML SYR Tdap IM ONE ×2 (03:15→03:39)
[2020-08-15] MEDS ORDERED: LIDOCAINE 1% HCL (LOCAL ANESTH.) INJ 20ML MDV ID ONE (03:15)
== END 2020-08-15 03:53 | disposition home or self-care (01) ==
LOC: ER 22:04
DX: S81.811A Laceration without foreign body, right lower leg, initial encounter (principal); I10 Essential (primary) hypertension; W26.8XXA Contact with other sharp object(s), not elsewhere classified, initial encounter; Y93.89 Activity, other specified; Y92.89 Other specified places as the place of occurrence of the external cause; Y99.8 Other external cause status
CPT/HCPCS: 12001; 70450; 72125; 73590; 90471; 90715